=== PATIENT | female | born 2000 | race African-American/Black ===

== ENCOUNTER 2022-01-07 16:24 | Emergency (ER) | payer MEDICAID ==
[~2022-01-07] VITALS: Ht 167.6 cm; Wt 55.0 kg
[2022-01-07] MEDS ORDERED: ACETAMINOPHEN 325MG TABLET PO STA (17:20)
[2022-01-07 17:47] LABS: BASOPHILS % 0.1 % (0.0-2.0); EOSINOPHILS % 0.1 % (0.0-5.0); HEMATOCRIT. 38.1 % (36.0-48.0); LYMPHOCYTES % 10.1 % (20.0-50.0); MEAN CORPUSCULAR HEMOGLOBIN 30.4 pg (28.0-32.0); MEAN CORPUSCULAR VOLUME 89.4 fL (81.0-99.0); MEAN PLATELET VOLUME 8.4 fl (7.4-10.4); MONOCYTES % 3.7 % (2.0-8.0); PLATELET 210 x1000/uL (130-400); RED BLOOD CELL COUNT 4.27 mill/uL (4.2-5.4); RED CELL DISTRIBUTION WIDTH 13.5 % (11.6-14.6)
[2022-01-07 17:56] LABS: CHLORIDE 107 mEq/L (98-107)
[2022-01-07 17:57] LABS: CLARITY URINE CLEAR (CLEAR); COLOR URINE YELLOW (YELLOW); KETONES URINE TRACE (NEGATIVE); LEUKOCYTE ESTERASE URINE 1+ (NEGATIVE); NITRITE URINE NEGATIVE (NEGATIVE); OCCULT BLOOD URINE 1+ (NEGATIVE); PH URINE >=9.0 (4.5-8.0); PROTEIN URINE 1+ (NEGATIVE); SPECIFIC GRAVITY URINE 1.023 (1.005-1.030)
[2022-01-07 18:19] LABS: B-HCG QUANTITATIVE 1186 mIU/mL (<3)
[2022-01-07] MEDS ORDERED: MORPHINE SULFATE 4 MG/ML CPJ (NOT FOR IM USE) IV ONE (19:45)
[2022-01-07] MEDS ORDERED: KETOROLAC 30MG/ML VIAL IV ONE (21:15)
[2022-01-07] MEDS ORDERED: ONDANSETRON HCL 4MG/2ML INJ IV ONE (21:30)
[2022-01-07] MEDS ORDERED: MORPHINE SULFATE 2 MG/ML CPJ (NOT FOR IM USE) IV NR (22:30)
[2022-01-07] MEDS ORDERED: IBUP-2030 PO (22:40)
[2022-01-07] MEDS ORDERED: T3 PO (22:40)
[2022-01-07] MEDS ORDERED: NITR100C PO (22:41)
[2022-01-07 22:56] VITALS: BP 125/74
== END 2022-01-07 22:57 | disposition home or self-care (01) ==
LOC: ER 16:24
DX: O03.4 Incomplete spontaneous abortion without complication (principal); N39.0 Urinary tract infection, site not specified
CPT/HCPCS: 36415; 76801; 76817; 80053; 81003; 81025; 83690; 84702; 85025; 86850; 86900; 86901; 96374; 96375; 99284; J1885; J2270; J2405